=== PATIENT | female | born 1965 | race Hispanic/Latino ===

== ENCOUNTER 2023-07-22 06:20 | Day surgery (SDC) | payer BC, OTHER ==
[2023-07-20 15:50] VITALS: BP 131/75; PULSE 61; RESP 16
[2023-07-22] VITALS (11 sets, daily range): BP systolic 84–143; BP diastolic 46–76; PULSE 61–78; RESP 11–16
[~2023-07-22] VITALS: Ht 167.6 cm; Wt 75.3 kg
[~2023-07-22 06:20] MED LIST: CLIN-116 PO; LEVO75TA PO; LORA10TA7 PO
[2023-07-22] MEDS ORDERED: PROPOFOL 10 MG/ML 20ML VIAL IV ONE ×2 (09:00→09:23)
[2023-07-22] MEDS ORDERED: LIDOCAINE HCL 1% 20 ML VIAL ONE (09:01)
[2023-07-22] MEDS ORDERED: LEVOFLOXACIN 500 MG/D5W 100 ML 100 ML ONE (09:07)
== END 2023-07-22 10:51 | disposition home or self-care (01) ==
LOC: DAH 06:20 → ENDO 06:20
PROVIDERS: ATTEND Internal Medicine Gastroenterology
DX: R93.3 Abnormal findings on diagnostic imaging of other parts of digestive tract (principal); K86.2 Cyst of pancreas; K86.9 Disease of pancreas, unspecified; K44.9 Diaphragmatic hernia without obstruction or gangrene; K29.70 Gastritis, unspecified, without bleeding; M81.0 Age-related osteoporosis without current pathological fracture; L02.211 Cutaneous abscess of abdominal wall; Z79.01 Long term (current) use of anticoagulants; Z79.899 Other long term (current) drug therapy; Z90.710 Acquired absence of both cervix and uterus
CPT/HCPCS: 43238; 43239; 82150; 88305; 88112; 82378; J1956; J2704 ×2; A4620; A4215 ×3; A4223; A7002; A4222; A4221; A4663; J7030; A4606; 36415; J3490